=== PATIENT | male | born 1980 | race Hispanic/Latino ===

== ENCOUNTER 2017-10-09 19:37 | Emergency (ER) | payer OTHER ==
[~2017-10-09] VITALS: Ht 167.6 cm; Wt 145.1 kg
== END 2017-10-09 22:14 | disposition home or self-care (01) ==
LOC: FSED 19:37
DX: R30.0 Dysuria (principal); N50.3 Cyst of epididymis; I10 Essential (primary) hypertension

== ENCOUNTER 2018-01-11 00:20 | Emergency (ER) | payer OTHER ==
[~2018-01-11] VITALS: Ht 167.6 cm; Wt 145.1 kg
[2018-01-11] MEDS ORDERED: KETOROLAC TROMETHAMINE 30 MG/ML VIAL IM STA (00:48)
[2018-01-11] MEDS ORDERED: MELOXICAM7.5 MG PO (00:55)
[2018-01-11] MEDS ORDERED: MEDROL4 MG PO (00:55)
[2018-01-11] MEDS ORDERED: PEPCID20 MG PO (00:55)
[2018-01-11] MEDS ORDERED: ROBAXIN-750750 MG PO (00:55)
== END 2018-01-11 01:25 | disposition home or self-care (01) ==
LOC: FSED 00:20
DX: M54.5 Low back pain (principal); S39.012A Strain of muscle, fascia and tendon of lower back, initial encounter; I10 Essential (primary) hypertension
CPT/HCPCS: 99283; J1885

== ENCOUNTER 2018-08-26 14:28 | Emergency (ER) | payer OTHER ==
[~2018-08-26] VITALS: Ht 167.6 cm; Wt 145.1 kg
[~2018-08-26 14:28] MED LIST: MEDROL4 MG PO; MELOXICAM7.5 MG PO; PEPCID20 MG PO; ROBAXIN-750750 MG PO
--- OUTSIDE RECORDS SUMMARY | 2018-08-26 14:31 | XMS REPORT | Continuity of Care Document ---
Author Author [facility] Interface Address Unknown Phone Unavailable Problems Problem Status Onset Date Classification Date Reported Comments Source Edema leg Active Diagnosis 08/05/2013 [facility] Elevated triglycerides with high cholesterol Active Problem 05/05/2014 [facility] Chest Pain Active Problem 05/05/2014 [facility] Prediabetes Active Problem 05/05/2014 [facility] Hypersomnia Active Problem 05/05/2014 [facility] Achilles tendon pain Active Diagnosis 08/05/2013 [facility] Anxiety Active Problem 05/05/2014 [facility] HTN Active Diagnosis 08/05/2013 [facility] Otitis media Active Diagnosis 07/22/2013 [facility] Morbid obesity Active Problem 05/05/2014 [facility] Low back pain Active Diagnosis 02/13/2013 [facility] Edema Active Diagnosis 02/13/2013 [facility] Radiculopathy of arm Active Diagnosis 01/13/2014 [facility] Adult body mass index 50.0-59.9 Active Problem 05/05/2014 [facility] Essential hypertension, benign Active Problem 05/05/2014 [facility] Elevated alanine aminotransferase level Active Problem 05/05/2014 [facility] Depression screening Active Diagnosis 11/05/2013 [facility] Dietary counseling Active Diagnosis 11/05/2013 [facility] Ear pain Active Diagnosis 07/22/2013 [facility] Needs flu shot Active Diagnosis 02/25/2013 [facility] Medications Medication Details Route Status Patient Instructions Ordering Provider Order Date Source Famotidine (Pepcid) 20 Mg Tablet Twice A Day Active take while on Medrol dose pack and/or meloxicam for stomach protection [facility] 01/11/2018 [facility] Meloxicam 7.5 Mg Tablet Daily Active Begin after medrol dose pack completed Pierre 01/11/2018 [facility] Methocarbamol (Robaxin-750) 750 Mg Tablet Three Times A Day as needed for Pain Active Pierre 01/11/2018 [facility] Methylprednisolone (Medrol) 4 Mg Tablet Daily Active take as per label instructions for dose pack; do not take meloxicam until this dose pack is completed Pierre 01/11/2018 [facility] Metoprolol Tartrate 1 tablet Orally Active 50 mg Orally Twice a day [facility] 04/22/2014 [facility] Flexeril 1 tablet Orally Active 10 mg Orally once every night [facility] 11/26/2013 [facility] Prilosec OTC 1 tablet Orally Active 20 mg Orally Once a day [facility] 10/08/2013 [facility] Augmentin 1 tablet Orally Active 875-125 MG Orally Twice a day [facility] 07/08/2013 [facility] Zoloft 1 tablet Orally Inactive 50 mg Orally Once a day [facility] 02/19/2013 [facility] Augmentin 1 tablet Orally Active 875-125 MG Orally Twice a day [facility] 02/04/2013 [facility] Aspirin 1 tablet Orally Active 81 MG Orally Once a day [facility] 02/04/2013 [facility] Bystolic 1 tablet Orally Active 5 MG Orally Once a day [facility] 12/24/2012 [facility] Bystolic 1 tablet Orally No Longer Active 10 mg Orally Once a day [facility] 12/24/2012 [facility] Sinus Formula as directed Orally No Longer Active Orally [facility] Aspirin 1 tablet Orally Active 325 MG Orally Once a day [facility] Antipyrine-Benzocaine 1 drop affected ear canal into affected ear Otic Active 5.4-1.4 % Otic Three times a day [facility] Allergies, Adverse Reactions, Alerts Substance Category Reaction Severity Reaction type Status Date Reported Comments Source Tylenol Adverse Reaction rash Adverse Reaction Active 11/26/2013 [facility] Acetaminophen Unknown Allergy to Substance Active 01/11/2018 [facility] Immunizations Immunization Date Given Site Status Last Updated Comments Source Results Order Name Results Value Reference Range Date Interpretation Comments Source Vital Signs Vital Sign Value Date Comments Source Weight 322 11/26/2013 [facility] Height 66 11/26/2013 [facility] Heart Rate 66 11/26/2013 [facility] Diastolic (mm Hg) 82 11/26/2013 [facility] Systolic (mm Hg) 146 11/26/2013 [facility] Weight 327 10/08/2013 [facility] Height 66 10/08/2013 [facility] Heart Rate 74 10/08/2013 [facility] Diastolic (mm Hg) 96 10/08/2013 [facility] Systolic (mm Hg) 142 10/08/2013 [facility] Systolic (mm Hg) 128 07/28/2013 [facility] Height 66 07/28/2013 [facility] Heart Rate 64 07/28/2013 [facility] Diastolic (mm Hg) 88 07/28/2013 [facility] Weight 324 07/08/2013 [facility] Height 66 07/08/2013 [facility] Temperature Oral (F) 98.4 F 07/08/2013 [facility] Heart Rate 62 07/08/2013 [facility] Diastolic (mm Hg) 86 07/08/2013 [facility] Systolic (mm Hg) 130 07/08/2013 [facility] Weight 318 05/01/2013 [facility] Height 66 05/01/2013 [facility] Temperature Oral (F) 98.3 F 05/01/2013 [facility] Diastolic (mm Hg) 72 05/01/2013 [facility] Systolic (mm Hg) 120 05/01/2013 [facility] Weight 325 02/19/2013 [facility] Height 66 02/19/2013 [facility] Temperature Oral (F) 98.7 F 02/19/2013 [facility] Diastolic (mm Hg) 84 02/19/2013 [facility] Systolic (mm Hg) 124 02/19/2013 [facility] Weight 328 02/04/2013 [facility] Height 66 02/04/2013 [facility] Heart Rate 68 02/04/2013 [facility] Diastolic (mm Hg) 88 02/04/2013 [facility] Systolic (mm Hg) 138 02/04/2013 [facility] Weight 326 12/31/2012 [facility] Height 66 12/31/2012 [facility] Heart Rate 72 12/31/2012 [facility] Diastolic (mm Hg) 74 12/31/2012 [facility] Systolic (mm Hg) 120 12/31/2012 [facility] Encounters Location Location Details Encounter Type Encounter Number Reason For Visit Attending Provider ADM Date DC Date Status Source [facility] echo/sharita [id number] 01/21/2013 01/21/2013 [facility] echo/sharita [id number] 01/21/2013 01/21/2013 [facility] echo/sharita [id number] 01/21/2013 01/21/2013 [facility] echo/sharita [id number] 01/21/2013 01/21/2013 [facility] echo/sharita [id number] 01/21/2013 01/21/2013 [facility] echo/sharita [id number] 01/21/2013 01/21/2013 [facility] echo/sharita [id number] 01/21/2013 01/21/2013 [facility] echo/sharita [id number] 01/21/2013 01/21/2013 [facility] echo/sharita [id number] 01/21/2013 01/21/2013 [facility] echo/sharita [id number] 01/21/2013 01/21/2013 [facility] echo/sharita [id number] 01/21/2013 01/21/2013 [facility] echo/sharita [id number] 01/21/2013 01/21/2013 [facility] echo/sharita [id number] 01/21/2013 01/21/2013 [facility] echo/sharita [id number] 01/21/2013 01/21/2013 [facility] RESULTS [id number] 02/04/2013 02/04/2013 [facility] RESULTS [id number] 02/04/2013 02/04/2013 [facility] RESULTS [id number] 02/04/2013 02/04/2013 [facility] RESULTS [id number] 02/04/2013 02/04/2013 [facility] RESULTS [id number] 02/04/2013 02/04/2013 [facility] RESULTS [id number] 02/04/2013 02/04/2013 [facility] RESULTS [id number] 02/04/2013 02/04/2013 [facility] RESULTS [id number] 02/04/2013 02/04/2013 [facility] RESULTS [id number] 02/04/2013 02/04/2013 [facility] RESULTS [id number] 02/04/2013 02/04/2013 [facility] RESULTS [id number] 02/04/2013 02/04/2013 [facility] RESULTS [id number] 02/04/2013 02/04/2013 [facility] RESULTS [id number] 02/04/2013 02/04/2013 [facility] RESULTS [id number] 02/04/2013 02/04/2013 [facility] CHEST PAIN [id number] 02/19/2013 02/19/2013 [facility] CHEST PAIN [id number] 02/19/2013 02/19/2013 [facility] CHEST PAIN [id number] 02/19/2013 02/19/2013 [facility] CHEST PAIN [id number] 02/19/2013 02/19/2013 [facility] CHEST PAIN [id number] 02/19/2013 02/19/2013 [facility] CHEST PAIN [id number] 02/19/2013 02/19/2013 [facility] CHEST PAIN [id number] 02/19/2013 02/19/2013 [facility] CHEST PAIN [id number] 02/19/2013 02/19/2013 [facility] CHEST PAIN [id number] 02/19/2013 02/19/2013 [facility] CHEST PAIN [id number] 02/19/2013 02/19/2013 [facility] CHEST PAIN [id number] 02/19/2013 02/19/2013 [facility] CHEST PAIN [id number] 02/19/2013 02/19/2013 [facility] CHEST DISCOMFORT [id number] 05/01/2013 05/01/2013 [facility] CHEST DISCOMFORT [id number] 05/01/2013 05/01/[address] [facility] CHEST DISCOMFORT [id number] 05/01/2013 05/01/2013 [facility] CHEST DISCOMFORT [id number] 05/01/2013 05/01/2013 [facility] CHEST DISCOMFORT [id number] 05/01/2013 05/01/2013 [facility] CHEST DISCOMFORT [id number] 05/01/2013 05/01/2013 [facility] CHEST DISCOMFORT [id number] 05/01/2013 05/01/[address] [facility] CHEST DISCOMFORT [id number] 05/01/2013 05/01/2013 [facility] CHEST DISCOMFORT [id number] 05/01/2013 05/01/2013 [facility] CHEST DISCOMFORT [id number] 05/01/2013 05/01/2013 [facility] CHEST DISCOMFORT [id number] 05/01/2013 05/01/2013 [facility] EAR [id number] 07/08/2013 07/08/2013 [facility] EAR [id number] 07/08/2013 07/08/2013 [facility] EAR [id number] 07/08/2013 07/08/2013 [facility] EAR [id number] 07/08/2013 07/08/2013 [facility] EAR [id number] 07/08/2013 07/08/2013 [facility] EAR [id number] 07/08/2013 07/08/2013 [facility] EAR [id number] 07/08/2013 07/08/2013 [facility] EAR [id number] 07/08/2013 07/08/2013 [facility] EAR [id number] 07/08/2013 07/08/2013 [facility] EAR [id number] 07/08/2013 07/08/2013 [facility] hurt leg playing basketball [id number] 07/28/2013 07/28/2013 [facility] hurt leg playing basketball [id number] 07/28/2013 07/28/2013 [facility] hurt leg playing basketball [id number] 07/28/2013 07/28/2013 [facility] hurt leg playing basketball [id number] 07/28/2013 07/28/2013 [facility] hurt leg playing basketball [id number] 07/28/2013 07/28/2013 [facility] hurt leg playing basketball [id number] 07/28/2013 07/28/2013 [facility] hurt leg playing basketball [id number] 07/28/2013 07/28/2013 [facility] hurt leg playing basketball [id number] 07/28/2013 07/28/2013 [facility] Test results [id number] 07/28/2013 07/28/2013 [facility] Test results [id number] 07/28/2013 07/28/2013 [facility] Test results [id number] 07/28/2013 07/28/2013 [facility] Test results [id number] 07/28/2013 07/28/2013 [facility] Test results [id number] 07/28/2013 07/28/2013 [facility] Test results [id number] 07/28/2013 07/28/2013 [facility] Test results [id number] 07/28/2013 07/28/2013 [facility] Test results [id number] 07/28/2013 07/28/2013 [facility] Test results [id number] 07/28/2013 07/28/2013 [facility] BP CHK [id number] 10/08/2013 10/08/2013 [facility] [id number] 10/08/2013 10/08/2013 [facility] [id number] 10/08/2013 10/08/2013 [facility] [id number] 10/08/2013 10/08/2013 [facility] [id number] 10/08/2013 10/08/2013 [facility] [id number] 10/08/2013 10/08/2013 [facility] [facility] [id number] 10/08/2013 10/08/2013 [facility] left arm pain [id number] 11/26/2013 11/26/2013 [facility] left arm pain [id number] 11/26/2013 11/26/2013 [facility] left arm pain [id number] 11/26/2013 11/26/2013 [facility] left arm pain [id number] 11/26/2013 11/26/2013 [facility] left arm pain [id number] 11/26/2013 11/26/2013 [facility] left arm pain [id number] 11/26/2013 11/26/2013 [facility] Unknown [id number] 01/14/2014 01/14/2014 [facility] Unknown [id number] 01/14/2014 01/14/2014 [facility] Unknown [id number] 01/15/2014 01/15/2014 [facility] Unknown [id number] 01/15/2014 01/15/2014 [facility] Unknown [id number] 01/15/2014 01/15/2014 [facility] Unknown [id number] 02/16/2014 02/16/2014 [facility] Unknown [id number] 02/16/2014 02/16/2014 [facility] Unknown [id number] 02/16/2014 02/16/2014 [facility] Unknown [id number] 02/16/2014 02/16/2014 [facility] Unknown [id number] 02/16/2014 02/16/2014 [facility] Unknown [id number] 03/18/2014 03/18/2014 [facility] Unknown [id number] 03/18/2014 03/18/2014 [facility] Unknown [id number] 03/18/2014 03/18/2014 [facility] Unknown [id number] 04/22/2014 04/22/2014 [facility] Unknown [id number] 04/22/2014 04/22/2014 [facility] Unknown [id number] 04/22/2014 04/22/2014 [facility] Refill [id number] 05/26/2014 05/26/2014 [facility] Departed Emergency Room [id number] DANNY WEBER MD 10/09/2017 10/09/2017 [facility] Departed Emergency Room [id number] JANINE GABRIEL MD 01/11/2018 01/11/2018 [facility] Procedures Procedure Code Date Perfomer Comments Source EMERGENCY DEPT VISIT [id number] 10/09/2017 [facility]
[2018-08-26] MEDS ORDERED: CEFTRIAXONE SOD 1 GRAM/0.9% SOD CHL 50ML BAG IV STA (14:51)
[2018-08-26] MEDS ORDERED: AZITHROMYCIN 250 MG TAB PO STA (14:51)
== END 2018-08-26 16:04 | disposition home or self-care (01) ==
LOC: FSED 14:28
DX: R30.0 Dysuria (principal); H10.231 Serous conjunctivitis, except viral, right eye
CPT/HCPCS: 81003; 87086; 87800; 99283; J0696

== ENCOUNTER 2018-09-07 21:30 | Emergency (ER) | payer OTHER ==
[~2018-09-07] VITALS: Ht 167.6 cm; Wt 142.9 kg
[2018-09-07] MEDS ORDERED: ACETAMINOPHEN 325 MG TAB PO ONE (22:00)
[2018-09-07] MEDS ORDERED: CLONIDINE HCL 0.1 MG TAB PO ONE (22:00)
--- NOTE | 2018-09-07 22:35 | Diagnostic Imaging Report ---
EXAMINATION: CXR 1 W - [facility] INDICATION: High blood pressure. Tightness. COMPARISON: None FINDINGS: TUBES and LINES: None. LUNGS: Lungs are well inflated. Lungs are clear. There is mild prominence of the central pulmonary vasculature, consistent with pulmonary venous congestion. PLEURA: No pleural effusion or pneumothorax. HEART AND MEDIASTINUM: Cardiac size is mildly enlarged. BONES AND SOFT TISSUES: No acute osseous lesion. Soft tissues are unremarkable. UPPER ABDOMEN: No free air under the diaphragm. IMPRESSION: Mild cardiomegaly with mild central pulmonary venous congestion. Signed by: Dr. Mike Bernstein M.D. on 09/07/2018 10:32 PM
[2018-09-07] MEDS ORDERED: TESTOSTERO100 MG/1 M (22:39)
[2018-09-07] MEDS ORDERED: AMLODIPINE BESYL5 MG PO (22:39)
[2018-09-07] MEDS ORDERED: METOPROLOL SUCC50 MG PO (22:39)
[2018-09-08 00:28] VITALS: BP 145/67
== END 2018-09-07 23:33 | disposition home or self-care (01) ==
LOC: FSED 21:30
DX: R07.89 Other chest pain (principal); I10 Essential (primary) hypertension
CPT/HCPCS: 71045; 80053; 82553; 83880; 84484; 85025; 93005

== ENCOUNTER 2018-10-30 01:59 | Emergency (ER) | payer OTHER ==
[~2018-10-30] VITALS: Ht 167.6 cm; Wt 142.9 kg
[~2018-10-30 01:59] MED LIST changes: +AMLODIPINE BESYL5 MG PO; +METOPROLOL SUCC50 MG PO; +TESTOSTERO100 MG/1 M
--- OUTSIDE RECORDS SUMMARY | 2018-10-30 02:02 | XMS REPORT ---
Author Author [facility] Address Unknown Phone Unavailable Care Team Providers Care Parimutuel Ticket Seller Name Role Phone Tess BARRAZA Unavailable Unavailable Problems This patient has no known problems. Allergies, Adverse Reactions, Alerts This patient has no known allergies or adverse reactions. Medications This patient has no known medications. Results Test Description Test Time Test Comments Text Results Atomic Results Result Comments CXR 1 [facility] 2018-09-07 22:31:00 [place] [address] Patient Name: VIGNESH BAUMAN MR #: [id number] : 1980 Age/Sex: 38/M Req #: [id number] Adm Physician: Ordered by: RALPH BARRAZA MD Report #: [id number] Location: [facility] Room/Bed: Procedure: [id number] HOPD/CXR 1 [facility] Exam Date: 09/07/18 Exam Time: 3 REPORT STATUS: Signed EXAMINATION: CXR 1 W - [facility] INDICATION: High blood pressure. Tightness. COMPARISON: None FINDINGS: TUBES and LINES: None. LUNGS: Lungs are well inflated. Lungs are clear. There is mild prominence of the central pulmonary vasculature, consistent with pulmonary venous congestion. PLEURA: No pleural effusion or pneumothorax. HEART AND MEDIASTINUM: Cardiac size is mildly enlarged. BONES AND SOFT TISSUES: No acute osseous lesion. Soft tissues are unremarkable. UPPER ABDOMEN: No free air under the diaphragm. IMPRESSION: Mild cardiomegaly with mild central pulmonary venous congestion. Signed by: Dr. Geri Bernstein M.D. on 09/07/2018 10:32 PM Dictated By: GERI BERNSTEIN MD 31 Transcribed By: DONNIE on 09/07/182231 COPY TO: RALPH BARRAZA MD
[2018-10-30] MEDS ORDERED: ONDANSETRON HCL INJ 2MG/ML 2ML 2 MG/ML VIAL IV STA (02:19)
[2018-10-30] MEDS ORDERED: FAMOTIDINE 20 MG/2 ML VIAL IV STA (02:19)
[2018-10-30] MEDS ORDERED: FAMOTIDINE 20 MG/2 ML VIAL IV ONE (02:29)
[2018-10-30] MEDS ORDERED: MORPHINE SULFATE INJ 4 MG/ML INJ 1ML IV PRN (02:30)
--- NOTE | 2018-10-30 04:05 | Diagnostic Imaging Report ---
EXAMINATION: CXR 1 [facility] INDICATION: ^[id number] ^[id number] COMPARISON: 09/07/2018 FINDINGS: AP view TUBES and LINES: None. LUNGS: Lungs are well inflated. Mild central vascular congestion. There is no evidence of pneumonia or pulmonary edema. PLEURA: No pleural effusion or pneumothorax. HEART AND MEDIASTINUM: The cardiac silhouette is mildly enlarged. BONES AND SOFT TISSUES: No acute osseous lesion. Soft tissues are unremarkable. UPPER ABDOMEN: No free air under the diaphragm. IMPRESSION: No change from prior exam. Mild central vascular congestion and enlarged cardiac silhouette. Signed by: Dr. Kyle Duque MD on 10/30/2018 4:02 AM
== END 2018-10-30 02:58 | disposition home or self-care (01) ==
LOC: FSED 01:59
DX: K29.00 Acute gastritis without bleeding (principal); Z88.6 Allergy status to analgesic agent
CPT/HCPCS: 71045; 80053; 81003; 85025; 93005; 99283

== ENCOUNTER 2018-12-03 17:41 | Emergency (ER) | payer OTHER ==
[~2018-12-03] VITALS: Ht 167.6 cm; Wt 142.9 kg
--- OUTSIDE RECORDS SUMMARY | 2018-12-03 17:45 | XMS REPORT | Clinical Summary ---
Author Author [facility] Address Unknown Phone Unavailable Care Team Providers Care Biology Department Chair Name Role Phone Pat Linton MD PCP Allergies Comments Active Allergy Reactions Severity Noted Date Acetaminophen Hives 10/31/2018 Medications End Date Status Medication Sig Dispensed Refills Start Date Active metoprolol tartrate 1 (LOPRESSOR) 50 mg tablet 9 Active sucralfate (CARAFATE) 1 TAKE 1 TABLET 0 gram tablet BY MOUTH 4 9 TIMES DAILY Active pantoprazole (PROTONIX) Take 40 mg by 0 40 MG EC tablet mouth daily. 9 12/01/2018 cyclobenzaprine Take 1 tablet 30 tablet 0 (FLEXERIL) 10 mg tablet (10 mg total) 9 by mouth 3 (three) times a day as needed for muscle spasms for up to 30 days. Active Problems Not on file Encounters Care Team Description Date Type Specialty Earl Resendiz MD Back [facility], initial encounter (Primary Dx) 10/31/2018 Emergency Emergency Medicine - 11/01/2018 10/31/2018 Travel after 12/02/2017 Social History Date Tobacco Use Types Packs/Day Years Used Never Smoker Smokeless Tobacco: Never Used Alcohol Use Drinks/Week oz/Week Comments Not Currently Sex Assigned at Date Recorded Not on file Industry Job Start Date Occupation Not on file Not on file Not on file Travel End Travel History Travel Start No recent travel history available. Last Filed Vital Signs Time Taken Vital Sign Reading 11/01/2018 1:54 AM CDT Blood Pressure 149/78 11/01/2018 1:54 AM CDT Pulse 80 11/01/2018 1:54 AM CDT Temperature 36.7 C (98.1 F) 11/01/2018 1:54 AM CDT Respiratory Rate 20 11/01/2018 1:54 AM CDT Oxygen Saturation 99% - Inhaled Oxygen - Concentration 10/31/2018 9:36 PM CDT Weight 143 kg (315 lb) 10/31/2018 9:36 PM CDT Height 167.6 cm (5' 6") 10/31/2018 9:36 PM CDT Body Mass Index 50.84 Plan of Treatment Health Maintenance Due Date Last Done Comments INFLUENZA VACCINE 12/26/2018 Procedures Comments Procedure Name Priority Date/Time Associated Diagnosis CT RENAL STONE PROTOCOL STAT 10/31/2018 11:39 PM CDT ESTIMATED GFR STAT 10/31/2018 10:53 PM CDT URINALYSIS STAT 10/31/2018 10:53 PM CDT LIPASE LEVEL STAT 10/31/2018 10:53 PM CDT COMPREHENSIVE METABOLIC STAT 10/31/2018 PANEL 10:53 PM CDT HC COMPLETE BLD COUNT STAT 10/31/2018 W/AUTO DIFF 10:53 PM CDT after 12/02/2017 Results * CT Renal Stone Protocol (10/31/2018 11:39 PM CDT) Specimen Narrative Performed At CT RENAL STONE PROTOCOL [facility] INDICATION:left abdominal and back painhematuria TECHNIQUE: Multidetector CT of the abdomen and pelvis was performed without intravenous administration of iodinated contrast with multiplanar reformats. CT scans are performed using radiation dose reduction techniques (iterative reconstruction and/or automated exposure control). Technical factors are evaluated and adjusted to ensure appropriate moderation of exposure. Automated dose management technology is applied to adjust radiation exposure while achieving a diagnostic quality image. COMPARISON:11/10/2014 abdomen/pelvis CT FINDINGS: Lung bases:Clear. Liver:Normal. Gallbladder and biliary:The gallbladder is absent. Clips within the gallbladder fossa. Pancreas:Normal. Spleen:Normal. Gastrointestinal:Large and small bowel are normal in caliber. Appendix is visualized and appears normal. Adrenals:Normal. Kidneys and ureters:No mass or hydronephrosis. Urinary bladder:Normal. Lymph nodes:No enlarged lymph nodes in the abdomen or pelvis. Peritoneum:No ascites or free air. Vascular:Unremarkable. Reproductive organs:Normal prostate gland and seminal vesicles. Abdominal wall:Unremarkable. Bones:No acute osseous abnormalities. IMPRESSION: Negative CT for acute pathology within the abdomen and pelvis. [facility]-[id number] Procedure Note Interface, Radiology Results Incoming - 10/31/2018 11:[address] RENAL STONE PROTOCOL CLINICAL INDICATION: left abdominal and back pain hematuria TECHNIQUE: Multidetector CT of the abdomen and pelvis was performed without intravenous administration of iodinated contrast with multiplanar reformats. CT scans are performed using radiation dose reduction techniques (iterative reconstruction and/or automated exposure control). Technical factors are evaluated and adjusted to ensure appropriate moderation of exposure. Automated dose management technology is applied to adjust radiation exposure while achieving a diagnostic quality image. COMPARISON: 11/10/2014 abdomen/pelvis CT FINDINGS: Lung bases: Clear. Liver: Normal. Gallbladder and biliary: The gallbladder is absent. Clips within the gallbladder fossa. Pancreas: Normal. Spleen: Normal. Gastrointestinal: Large and small bowel are normal in caliber. Appendix is visualized and appears normal. Adrenals: Normal. Kidneys and ureters: No mass or hydronephrosis. Urinary bladder: Normal. Lymph nodes: No enlarged lymph nodes in the abdomen or pelvis. Peritoneum: No ascites or free air. Vascular: Unremarkable. Reproductive organs: Normal prostate gland and seminal vesicles. Abdominal wall: Unremarkable. Bones: No acute osseous abnormalities. IMPRESSION: Negative CT for acute pathology within the abdomen and pelvis. [facility]-[id number] Performing Organization Address City/Va Hospital/Zipcode Phone Number [facility] [address] [place] [address] * Estimated GFR (10/31/2018 10:53 PM CDT) Estimated GFR >=90 mL/min/1.73 m2 [place] Comment: [facility] G1 >=90 Normal or high G2 60-89Mildly decreased R0a20-64 Mildly to moderately decreased J8a71-30 Moderately to severely decreased G4 15-29Severely decreased G5 <15Kidney failure The eGFR was calculated using the Chronic Kidney Disease Epidemiology Collaboration (CKD-EPI) equation. Interpretation is based on recommendations of the National Kidney Foundation-Kidney Disease Outcomes Quality Initiative (NKF-KDOQI) published in 2014. Specimen Plasma specimen Performing Organization Address City/State/Zipcode Phone Number [address], [place] [address] PATHOLOGY AND GENOMIC [address] [place] [address] [address] [facility] [address] [place] [address] EM[facility] * Urinalysis (10/31/2018 10:53 PM CDT) Glucose, UA Negative Negative [facility] Bilirubin, UA Negative Negative [facility] Ketones, UA Trace (A) Negative [facility] Specific 1.020 1.001 - 1.035 [place] gravity, UA [facility] Blood, UA Negative Negative [facility] pH, UA 6.0 5.0 - 8.5 [facility] Protein, UA Negative Negative [facility] Urobilinogen, <2.0 <2.0 [facility] Nitrite, UA Negative Negative [facility] Leukocyte Negative Negative [place] esterase, UA [facility] Color, UA Yellow [facility] Appearance, UA Clear [facility] Specimen Urine Performing Organization Address City/State/Zipcode Phone Number [place] [phone] [facility], [place] [address] [facility] [address] * CBC with platelet and differential (10/31/2018 10:53 PM CDT) Pathologist [facility] WBC 8.02 4.50 - 11.00 k/uL [facility] RBC 5.31 4.40 - 6.00 m/uL [facility] HGB 14.4 14.0 - 18.0 g/dL [facility] HCT 43.4 41.0 - 51.0 % [facility] MCV 81.7 (L) 82.0 - 100.0 fL [facility] MCH 27.1 27.0 - 34.0 pg [facility] MCHC 33.2 31.0 - 37.0 g/dL [facility] RDW - SD 39.9 37.0 - 55.0 fL [facility] MPV 9.7 8.8 - 13.2 fL [facility] Platelet count 241 150 - 400 k/uL [facility] Neutrophils 54.9 39.0 - 69.0 % [facility] Lymphocytes 32.9 25.0 - 45.0 % [facility] Monocytes 8.7 0.0 - 10.0 % [facility] Eosinophils 3.1 0.0 - 5.0 % [facility] Basophils 0.4 0.0 - 1.0 % [facility] Specimen Blood Performing Organization Address City/[facility] Hospital/[place] [address] PATHOLOGY AND GENOMIC [address] [place] [address] [facility] [place] * Lipase level (10/31/2018 10:53 PM CDT) Lipase 40 13 - 60 U/L [facility] Specimen Serum Performing Organization Address City[facility] [place] [address] PATHOLOGY AND GENOMIC [address] * Comprehensive metabolic panel (10/31/2018 10:53 PM CDT) Sodium 141 135 - 148 mEq/L [facility] Potassium 3.5 3.5 - 5.0 mEq/L [facility] Chloride 105 98 - 112 mEq/L [facility] CO2 26 24 - 31 mEq/L [facility] Anion gap 10@ANIO 7 - 15 mEq/L [facility] BUN 8 6 - 20 mg/dL [facility] Creatinine 0.89 0.70 - 1.20 mg/dL [facility] Glucose 104 (H) 65 - 99 mg/dL [facility] Calcium 9.4 8.3 - 10.2 mg/dL [facility] Protein 6.8 6.3 - 8.3 g/dL [facility] Albumin 4.1 3.5 - 5.0 g/dL [facility] A/G ratio 1.5 0.7 - 3.8 [facility] Alkaline 66 40 - 129 U/L [place] phosphatase [facility] AST 22 10 - 50 U/L [facility] ALT 28 5 - 50 U/L [facility] Total bilirubin 0.7 0.0 - 1.2 mg/dL [facility] Specimen Plasma specimen Performing Organization Address City/State/Zipcode Phone Number DEPARTMENT [address] [facility], [place] [address] PATHOLOGY AND GENOMIC 140 MEDICINE, [place] [facility] [address] [facility] [address] [place] [address] EMERGENCY [facility]ARE CENTER after 12/02/2017 Insurance Type Payer Benefit Subscriber ID Effective Phone Address Plan / Dates Group Commercial COMMERCIAL MISC MISC xxxxxxxxx [id number] COMMERCIAL resent Advance Directives Patient has advance care planning documents on file. For more information, stacy muniz contact: [facility] [address] [place] [address]
--- OUTSIDE RECORDS SUMMARY | 2018-12-03 17:45 | XMS REPORT | Continuity of Care Document ---
Author Author [employer] Organization [employer] Address Unknown Phone Unavailable Care Team Providers Care Drug Room Operator Name Role Phone [employer] Unavailable Unavailable Problems Problem Status Onset Date Classification Date Reported Comments Source Anxiety Active Problem 05/05/2014 [facility] HTN Active Diagnosis 08/05/2013 [facility] Chest Pain Active Problem 05/05/2014 [facility] Hypersomnia Active Problem 05/05/2014 [facility] Needs flu shot Active Diagnosis 02/25/2013 [facility] Morbid obesity Active Problem 05/05/2014 [facility] Edema leg Active Diagnosis 08/05/2013 [facility] Elevated triglycerides with high cholesterol Active Problem 05/05/2014 [facility] Prediabetes Active Problem 05/05/2014 [facility] Achilles tendon pain Active Diagnosis 08/05/2013 [facility] Ear pain Active Diagnosis 07/22/2013 [facility] Otitis media Active Diagnosis 07/22/2013 [facility] Low back pain Active Diagnosis 02/13/2013 [facility] Edema Active Diagnosis 02/13/2013 [facility] Adult body mass index 50.0-59.9 Active Problem 05/05/2014 [facility] Essential hypertension, benign Active Problem 05/05/2014 [facility] Elevated alanine aminotransferase level Active Problem 05/05/2014 [facility] Depression screening Active Diagnosis 11/05/2013 [facility] Dietary counseling Active Diagnosis 11/05/2013 [facility] Radiculopathy of arm Active Diagnosis 01/13/2014 [facility] Medications Medication Details Route Status Patient Instructions Ordering Provider Order Date Source Famotidine (Pepcid) 20 Mg Tablet Twice A Day Active take while on Medrol dose pack and/or meloxicam for stomach protection [facility] 01/11/2018 [facility] Meloxicam 7.5 Mg Tablet Daily Active Begin after medrol dose pack completed Pierre 01/11/2018 [facility] Methocarbamol (Robaxin-750) 750 Mg Tablet Three Times A Day as needed for Pain Active Pierre 01/11/2018 [facility] Methylprednisolone (Medrol) 4 Mg Tablet Daily Active take as per label instructions for dose pack; do not take meloxicam until this dose pack is completed Pierre 01/11/2018 [facility] Metoprolol Tartrate 1 tablet Orally Active 50 mg Orally Twice a day [facility] 04/22/2014 [facility] Flexeril 1 tablet Orally Active 10 mg Orally once every night [facility] 11/26/2013 [facility] Prilosec OTC 1 tablet Orally Active 20 mg Orally Once a day [facility] 10/08/2013 [facility] Augmentin 1 tablet Orally Active 875-125 MG Orally Twice a day [facility] 07/08/2013 [facility] Zoloft 1 tablet Orally Inactive 50 mg Orally Once a day [facility] 02/19/2013 [facility] Aspirin 1 tablet Orally Active 81 MG Orally Once a day [facility] 02/04/2013 [facility] Augmentin 1 tablet Orally Active 875-125 MG Orally Twice a day [facility] 02/04/2013 [facility] Bystolic 1 tablet Orally Active 5 MG Orally Once a day [facility] 12/24/2012 [facility] Bystolic 1 tablet Orally No Longer Active 10 mg Orally Once a day [facility] 12/24/2012 [facility] Antipyrine-Benzocaine 1 drop affected ear canal into affected ear Otic Active 5.4-1.4 % Otic Three times a day [facility] Sinus Formula as directed Orally No Longer Active Orally [facility] Aspirin 1 tablet Orally Active 325 MG Orally Once a day [facility] Allergies, Adverse Reactions, Alerts Substance Category Reaction Severity Reaction type Status Date Reported Comments Source Tylenol Adverse Reaction rash Adverse Reaction Active 11/26/2013 [facility] Acetaminophen Unknown Allergy to Substance Active 01/11/2018 [facility] Immunizations No Data Provided for This Section Results No Data Provided for This Section Pathology Reports No Data Provided for This Section Diagnostic Reports No Data Provided for This Section Consultation Notes No Data Provided for This Section Discharge Summaries No Data Provided for This Section History and Physicals No Data Provided for This Section Vital Signs Vital Sign Value Date Comments [...] [facility] Systolic (mm Hg) 128 07/28/2013 [facility] Height 66 07/28/2013 [facility] Heart Rate 64 07/28/2013 [facility] Diastolic (mm Hg) 88 07/28/2013 [facility] Systolic (mm Hg) 128 07/28/2013 [facility] Height 66 07/28/2013 [facility] Heart Rate 64 07/28/2013 [facility] Diastolic (mm Hg) 88 07/28/2013 [facility] Weight 324 07/08/2013 [facility] Height 66 07/08/2013 [facility] Temperature Oral (F) 98.4 F 07/08/2013 [facility] Heart Rate 62 07/08/2013 [facility] Diastolic (mm Hg) 86 07/08/2013 [facility] Systolic (mm Hg) 130 07/08/2013 [facility] Weight 318 05/01/2013 [facility] Height 66 05/01/2013 [facility] Temperature Oral (F) 98.3 F 05/01/2013 [facility] Diastolic (mm Hg) 72 05/01/2013 [facility] Systolic (mm Hg) 120 05/01/2013 [facility] Weight 325 02/19/2013 [facility] Height 66 02/19/2013 [facility] Temperature Oral (F) 98.7 F 02/19/2013 [facility] Diastolic (mm Hg) 84 02/19/2013 [facility] Systolic (mm Hg) 124 02/19/2013 [facility] Weight 328 [...] [facility] Height 66 12/31/2012 [facility] Heart Rate 72 12/31/2012 [facility] Diastolic (mm Hg) 74 12/31/2012 [facility] Systolic (mm Hg) 120 12/31/2012 [facility] Encounters Location Location Details Encounter Type Encounter Number Reason For Visit Attending Provider ADM Date DC Date Status Source [facility] echo/sharita [id number] 01/21/2013 01/21/2013 [facility] echo/sharita [id number] 01/21/2013 01/21/2013 [facility] echo/sharita [id number] 01/21/2013 01/21/2013 [facility] echo/sharita [id number] 01/21/2013 01/21/2013 [facility] echo/sharita [id number] 01/21/2013 01/21/2013 [facility] echo/sharita [id number] 01/21/2013 01/21/2013 [facility] echo/sharita [id number] 01/21/2013 01/21/2013 [facility] echo/sharita [id number] 01/21/2013 01/21/2013 [facility] echo/sharita [id number] 01/21/2013 01/21/2013 [facility] echo/sharita [id number] 01/21/2013 01/21/2013 [facility] echo/sharita [id number] 01/21/2013 01/21/2013 [facility] echo/sharita [id number] 01/21/2013 01/21/2013 [facility] echo/sharita [id number] 01/21/2013 01/21/2013 [facility] echo/sharita [id number] 01/21/2013 01/21/2013 [facility] RESULTS [id number] 02/04/2013 02/04/2013 [facility] RESULTS [id number] 02/04/2013 02/04/2013 [facility] RESULTS [id number] 02/04/2013 02/04/2013 [facility] RESULTS [id number] 02/04/2013 02/04/2013 [facility] RESULTS [id number] 02/04/2013 02/04/2013 [facility] RESULTS [id number] 02/04/2013 02/04/2013 [facility] RESULTS [id number] 02/04/2013 02/04/2013 [facility] RESULTS [id number] 02/04/2013 02/04/2013 [facility] RESULTS [id number] 02/04/2013 02/04/2013 [facility] RESULTS [id number] 02/04/2013 02/04/2013 [facility] RESULTS [id number] 02/04/2013 02/04/2013 [facility] RESULTS [id number] 02/04/2013 02/04/2013 [facility] RESULTS [id number] 02/04/2013 02/04/2013 [facility] RESULTS [id number] 02/04/2013 02/04/2013 [facility] CHEST PAIN [id number] 02/19/2013 02/19/2013 [facility] CHEST PAIN [id number] 02/19/2013 02/19/2013 [facility] CHEST PAIN [id number] 02/19/2013 02/19/2013 [facility] CHEST PAIN [id number] 02/19/2013 02/19/2013 [facility] CHEST PAIN [id number] 02/19/2013 02/19/2013 [facility] CHEST PAIN [id number] 02/19/2013 02/19/2013 [facility] CHEST PAIN [id number] 02/19/2013 02/19/2013 [facility] CHEST PAIN [id number] 02/19/2013 02/19/2013 [facility] CHEST PAIN [id number] 02/19/2013 02/19/2013 [facility] CHEST PAIN [id number] 02/19/2013 02/19/2013 [facility] CHEST PAIN [id number] 02/19/2013 02/19/2013 [facility] CHEST PAIN [id number] 02/19/2013 02/19/2013 [facility] CHEST DISCOMFORT [id number] 05/01/2013 05/01/2013 [facility] CHEST DISCOMFORT [id number] 05/01/2013 05/01/2013 [facility] CHEST DISCOMFORT [id number] 05/01/2013 05/01/2013 [facility] CHEST DISCOMFORT [id number] 05/01/2013 05/01/2013 [facility] CHEST DISCOMFORT [id number] 05/01/2013 05/01/2013 [facility] CHEST DISCOMFORT [id number] 05/01/2013 05/01/2013 [facility] CHEST DISCOMFORT [id number] 05/01/2013 05/01/2013 [facility] CHEST DISCOMFORT [id number] 05/01/2013 05/01/2013 [facility] CHEST DISCOMFORT [id number] 05/01/2013 05/01/2013 [facility] CHEST DISCOMFORT [id number] 05/01/2013 05/01/2013 [facility] CHEST DISCOMFORT [id number] 05/01/2013 05/01/2013 [facility] EAR [id number] 07/08/2013 07/08/2013 [facility] EAR [id number] 07/08/2013 07/08/2013 [facility] EAR [id number] 07/08/2013 07/08/2013 [facility] EAR [id number] 07/08/2013 07/08/2013 [facility] EAR [id number] 07/08/2013 07/08/2013 [facility] EAR [id number] 07/08/2013 07/08/2013 [facility] EAR [id number] 07/08/2013 07/08/2013 [facility] EAR [id number] 07/08/2013 07/08/2013 [facility] EAR [id number] 07/08/2013 07/08/2013 [facility] EAR [id number] 07/08/2013 07/08/2013 [facility] hurt leg playing basketball [id number] 07/28/2013 07/28/2013 [facility] hurt leg playing basketball [id number] 07/28/2013 07/28/2013 [facility] hurt leg playing basketball [id number] 07/28/2013 07/28/2013 [facility] hurt leg playing basketball [id number] 07/28/2013 07/28/2013 [facility] hurt leg playing basketball [id number] 07/28/2013 07/28/2013 [facility] hurt leg playing basketball [id number] 07/28/2013 07/28/2013 [facility] hurt leg playing basketball [id number] 07/28/2013 07/28/2013 [facility] hurt leg playing basketball [id number] 07/28/2013 07/28/2013 [facility] Test results [id number] 07/28/2013 07/28/2013 [facility] Test results [id number] 07/28/2013 07/28/2013 [facility] Test results [id number] 07/28/2013 07/28/2013 [facility] Test results [id number] 07/28/2013 07/28/2013 [facility] Test results [id number] 07/28/2013 07/28/2013 [facility] Test results [id number] 07/28/2013 07/28/2013 [facility] Test results [id number] 07/28/2013 07/28/2013 [facility] Test results [id number] 07/28/2013 07/28/2013 [facility] Test results [id number] 07/28/2013 07/28/2013 [facility] [id number] 10/08/2013 10/08/2013 [facility] [id number] 10/08/2013 10/08/2013 [facility] [id number] 10/08/2013 10/08/2013 [facility] [id number] 10/08/2013 10/08/2013 [facility] [id number] 10/08/2013 10/08/2013 [facility] [id number] 10/08/2013 10/08/2013 [facility] [id number] 10/08/2013 10/08/2013 [facility] left arm pain [id number] 11/26/2013 11/26/2013 [facility] left arm pain [id number] 11/26/2013 11/26/2013 [facility] left arm pain [id number] 11/26/2013 11/26/2013 [facility] left arm pain [id number] 11/26/2013 11/26/2013 [facility] left arm pain [id number] 11/26/2013 11/26/2013 [facility] left arm pain [id number] 11/26/2013 11/26/2013 [facility] [facility] Unknown [id number] 01/14/2014 01/14/2014 [facility] Unknown [id number] 01/14/2014 01/14/2014 [facility] Unknown [id number] 01/15/2014 01/15/2014 [facility] Unknown [id number] 01/15/2014 01/15/2014 [facility] Unknown [id number] 01/15/2014 01/15/2014 [facility] Unknown [id number] 02/16/2014 02/16/2014 [facility] Unknown [id number] 02/16/2014 02/16/2014 [facility] Unknown [id number] 02/16/2014 02/16/2014 [facility] Unknown [id number] 02/16/2014 02/16/2014 [facility] Unknown [id number] 02/16/2014 02/16/2014 [facility] Unknown [id number] 03/18/2014 03/18/2014 [facility] Unknown [id number] 03/18/2014 03/18/2014 [facility] Unknown [id number] 03/18/2014 03/18/2014 [facility] Unknown [id number] 04/22/2014 04/22/2014 [facility] Unknown [id number] 04/22/2014 04/22/2014 [facility] Unknown [id number] 04/22/2014 04/22/2014 [facility] Refill [id number] 05/26/2014 05/26/2014 [facility] Departed Emergency Room [id number] DANNY WEBER MD 10/09/2017 10/09/2017 [facility] Departed Emergency Room [id number] JANINE GABRIEL MD 01/11/2018 01/11/2018 [facility] Procedures Procedure Code Date Perfomer Comments Source EMERGENCY DEPT VISIT [id number] 10/09/2017 [facility] Assessment and Plan No Data Provided for This Section Plan of Care Plan of Care Date Source Discharge Date 01/11/18 1:25am Disposition HOME, SELF-CARE Condition at Discharge Stable Instructions/Education Provided Back Pain Forms Provided Work/School Excuse Prescriptions See Medication Section Referrals Pat Linton Additional Instructions/Education PT referral provided. Call to schedule follow up. Take your prescribed medications as directed. 01/11/2018 [facility] Social History Social History Date Source Smoking Status Start Date Stop Date Never Smoker 01/11/2018 [facility] Social History ElementQualifiersDate Reported Depression Screening: . negative November 26, 2013 Flu Vaccine: . no November 26, 2013 children . 3 November 26, 2013 Tobacco Use: . Are you a: never smoker November 26, 2013 Marital Status: . - Adriana November 26, 2013 Do you drink alcohol? . Status: No November 26, 2013 Occupation: . unemployed November 26, 2013 11/26/2013 [facility] Family History Value Date Source QualifierDescriptionCommentDate Reported Mother alive DM November 26, 2013 Father alive triple bypass November 26, 2013 01/13/2014 [facility] QualifierDescriptionCommentDate Reported Mother alive DM October 08, 2013 Father alive triple bypass October 08, 2013 11/05/2013 [facility] QualifierDescriptionCommentDate Reported Mother alive DM July 28, 2013 Father alive triple bypass July 28, 2013 08/05/2013 [facility] QualifierDescriptionCommentDate Reported Mother alive DM Jul 08, 2013 Father alive triple bypass Jul 08, 2013 07/22/2013 [facility] QualifierDescriptionCommentDate Reported Mother alive DM May 01, 2013 Father alive triple bypass May 01, 2013 05/08/2013 [facility] QualifierDescriptionCommentDate Reported Mother alive DM Feb 19, 2013 Father alive triple bypass Feb 19, 2013 02/25/2013 [facility] QualifierDescriptionCommentDate Reported Mother alive DM Feb 04, 2013 Father alive triple bypass Feb 04, 2013 02/13/2013 [facility] Advance Directives Order Name Results Value Date Source Advance Directives Advance Directives Directive Response Recorded Date/Time Does the patient have an advance directive? No 10/09/17 8:07pm If yes, is advance directive on file with [facility]? No 10/09/17 8:07pm If not on file with [facility] will patient provide a copy? No 10/09/17 8:07pm 01/11/2018 [facility] Functional Status No Data Provided for This Section
[2018-12-03 18:36] VITALS: BP 164/89
== END 2018-12-03 18:40 | disposition home or self-care (01) ==
LOC: FSED 17:41
DX: L02.215 Cutaneous abscess of perineum (principal)
CPT/HCPCS: 99283

== ENCOUNTER 2019-07-14 21:48 | Emergency (ER) | payer BC, OTHER ==
[~2019-07-14] VITALS: Ht 167.6 cm; Wt 127.0 kg
== END 2019-07-14 22:44 | disposition home or self-care (01) ==
LOC: FSED 21:48
DX: S46.812A Strain of other muscles, fascia and tendons at shoulder and upper arm level, left arm, initial encounter (principal); X50.0XXA Overexertion from strenuous movement or load, initial encounter; Y93.B3 Activity, free weights; Y92.39 Other specified sports and athletic area as the place of occurrence of the external cause; H66.91 Otitis media, unspecified, right ear; I10 Essential (primary) hypertension
CPT/HCPCS: 99282